=== PATIENT | male | born 1955 | race Caucasian/White ===

== ENCOUNTER 2016-09-27 11:49 | Observation (INO) | payer BC ==
[2016-09-27] MEDS ORDERED: Aspirin Low Dose CHEW TAB* 81 MG PO ONE (12:39)
[2016-09-27] MEDS ORDERED: Nitroglycerin TAB 0.4 MG* 0.4 MG TAB SL ONE (12:50)
[2016-09-27 13:08] LABS: Hematocrit 46 % (42-52); Hemoglobin 15.5 g/dl (14.0-18.0); Mean Corpuscular HGB Conc 34 g/dl (31-36); Mean Corpuscular Hemoglobin 29 pg (27-31); Mean Corpuscular Volume 85 fL (80-94); Mean Platelet Volume 8 um3 (7.4-10.4); Red Blood Count 5.41 10^6/ul (4.0-5.4); Red Cell Distribution Width 12 % (10.5-15); White Blood Count 4.4 10^3/ul (3.5-10.8)
--- NOTE | 2016-09-27 13:15 | RAD ---
INDICATION: Chest pain. Cough and congestion COMPARISON: None TECHNIQUE: An AP portable view obtained at 1305 hours is submitted. FINDINGS: Bones/Soft Tissues: There are no acute bony findings. Cardiomediastinal: The cardiomediastinal silhouette is normal. Lungs: There is an ill-defined roughly 1.8 cm opacity projecting over the right upper lobe. This is nonspecific. Suggest repeating the chest x-ray in 7-10 days if the patient has current clinical symptoms which might be related to a pneumonitis. Alternatively, CT imaging could be performed. Pleura: There are no pleural effusions. Other: None IMPRESSION: INDETERMINATE RIGHT UPPER LOBE OPACITY. SUGGEST FOLLOW-UP
[2016-09-27 13:20] LABS: Calcium 9.2 mg/dL (8.6-10.3); EGFR African American 90.7 (>60); EGFR Non-African American 70.5 (>60); Globulin 2.7 g/dL (2-4); Potassium 4.1 mmol/L (3.5-5.0); Total Bilirubin 0.4 mg/dL (0.2-1.0); Total Protein 6.7 g/dL (6.4-8.9)
[2016-09-27] MEDS ORDERED: Iohexol 350* (CONTRAST) 500 ML MDV IV ONE (13:32)
[2016-09-27] MEDS ORDERED: Nitroglycerin TAB 0.4 MG* 0.4 MG TAB ONE (14:29)
[2016-09-27] MEDS ORDERED: Nitroglycerin 2% OINT* 1 GM PAK ONE (14:33)
--- NOTE | 2016-09-27 14:35 | RAD ---
HISTORY: Chest pain radiating to back COMPARISONS: None TECHNIQUE: Multiple contiguous axial CT scans were obtained of the chest and abdomen after the administration of intravenous contrast. Coronal and sagittal multiplanar reformations are submitted for review.. 3-D volumetric reconstructions are submitted of the aorta FINDINGS: CHEST NECK AND THYROID: The lower neck and thyroid are unremarkable. CHEST WALL: There is no lower cervical, axillary, or supraclavicular lymphadenopathy by size criteria. HEART AND PERICARDIUM: The heart is unremarkable. AORTA AND PULMONARY VASCULATURE: The aorta and pulmonary vasculature are normal. There is no aneurysmal dilatation or dissection flap. There is no pulmonary arterial filling defect. MEDIASTINUM: There is no mediastinal lymphadenopathy by size criteria. PATRICIA: There is no hilar lymphadenopathy by size criteria. AIRWAY AND ESOPHAGUS: The airway is unremarkable, without endobronchial filling defect. The esophagus is grossly normal. LUNG PARENCHYMA: There is a 1.3 cm nodule of the right upper lobe with smaller adjacent nodules. PLEURA: No pleural abnormalities are noted. BONES AND SOFT TISSUES: No bone or soft tissue abnormalities are noted. ABDOMEN/PELVIS: LIVER: The liver is normal in shape, size, contour, and attenuation. BILE DUCTS: There is no intrahepatic or extrahepatic biliary dilatation. GALLBLADDER: The gallbladder is normal, without pericholecystic inflammatory change. PANCREAS: The pancreas is normal, without mass or ductal dilatation. SPLEEN: Normal in size and appearance. UPPER GI TRACT: Evaluation of the gastrointestinal tract is limited by incomplete gastric distention. The upper GI tract is unremarkable. SMALL BOWEL \T\ MESENTERY: The small bowel is normal in contour, course, and caliber. There is no obstruction or dilatation. COLON: The colon is normal in contour, course, caliber. There is no pericolonic inflammatory change. ADRENALS: Normal bilaterally. KIDNEYS: The kidneys are normal in shape, size, contour, and axis. There is no hydronephrosis or nephrolithiasis. AORTA: The aorta is normal. There is no visible dilatation or dissection flap IVC: Unremarkable LYMPH NODES: There is no lymphadenopathy by size criteria. ABDOMINAL WALL: There is no evidence for abdominal wall hernia. BONES: There are mild diffuse degenerative changes. OTHER: None IMPRESSION: 1. NO ANEURYSMAL DILATATION OF THE AORTA. NO DISSECTION FLAP. 2. NO PULMONARY ARTERIAL FILLING DEFECT. 3. 1.3 CM NODULE OF THE RIGHT UPPER LOBE WITH SMALLER ADJACENT NODULES. THE RECOMMENDATIONS FOR FOLLOWUP AND MANAGEMENT OF AN INCIDENTALLY DETECTED PULMONARY NODULE GREATER THAN 8 MM IN SIZE, IN A PATIENT WITHOUT A HISTORY OF MALIGNANCY, INCLUDE FOLLOWUP CT AT 3, 9, AND 24 MONTHS, DYNAMIC CONTRAST-ENHANCED CT, PET-CT, AND/OR BIOPSY. NOTES: SIZE = AVERAGE LENGTH AND WIDTH; NODULES WITH A GROUND GLASS COMPONENT MAY REQUIRE LONGER FOLLOW UP TO EXCLUDE INDOLENT ADENOCARCINOMA.
[2016-09-27] MEDS ORDERED: Nitroglycerin 2% OINT* 1 GM PAK TOPICAL ONE (14:38)
[2016-09-27] MEDS ORDERED: Ondansetron INJ* 2 MG/ML VIAL IV PRN (14:38)
[2016-09-27] MEDS ORDERED: Acetaminophen TAB* 325 MG PO PRN (14:38)
[2016-09-27] MEDS: Nitroglycerin 2% OINT* 1 GM PAK TOPICAL SCH ×2 (19:37→19:39)
[2016-09-27] MEDS ORDERED: Nitroglycerin 2% OINT* 1 GM PAK TOPICAL SCH (22:00)
[2016-09-27] MEDS: Heparin VIAL(*) 5000 UNITS/ML VIAL (FIVE THOUSAND) SUBCUT SCH (22:20)
--- NOTE | 2016-09-28 04:25 | HP ---
HISTORY AND PHYSICAL: DATE OF ADMISSION: 09/27/16 PRIMARY CARE PROVIDER: Jacinto Mcclellan MD ATTENDING PHYSICIAN: Cedric Fernandes MD* (dictated by Skip Mas NP) CHIEF COMPLAINT: Chest pain. HISTORY OF PRESENT ILLNESS: Mr. Cannon is a 61-year-old male patient. He says over the last week he has had intermittent discomfort, starting in his back , mostly stating that he was going to massage therapist, stating that he was going to chiropractor and this was helping with the discomfort; however, the last 24 to 48 hours, he noticed that the discomfort started in his back. It felt different. It was not a sharp pain. It was a pressure, tightness feeling that was coming and going in waves, which was completely new from his previous symptoms that he had last week. He says he also noted today that he felt short of breath. He says that yesterday he went skiing and he actually did fine with skiing. He had no discomfort whatsoever with exertion. He said that the discomfort really started getting worse today. He was concerned and decided to come in because he looked up symptoms of a heart attack and felt that this might be the case. He does have a history of hyperlipidemia only and hypertension, but not on medications. He is managing this with diet control. His father did have a history of angina. He was evaluated in the ER. There was concern for the chest discomfort that it may represent ACS. Hospital service was asked to evaluate for admission. PAST MEDICAL HISTORY: Significant for: 1. Hypertension. 2. Hyperlipidemia. PAST SURGICAL HISTORY: Denied. HOME MEDICATIONS: Denied. ALLERGIES TO MEDICATIONS: Include no known drug allergies. FAMILY HISTORY: Mother recently at the age of 94. Father from emphysema. He did have a history of angina. SOCIAL HISTORY: He does not smoke. He does not drink alcohol. He works at [employer]. Surrogate decision maker is his brother, Glenn. REVIEW OF SYSTEMS: There is no documented fever. He denied having any significant weight change. There was no double vision. There is no ear discharge. He denies having any rhinorrhea. There is no sore throat. No thyroid enlargement. There is chest pain per my HPI. There is no orthopnea. No nocturnal dyspnea. There is no abdominal pain. There is no nausea. No vomiting. No dysuria. No frequency. No loss of consciousness. No pruritus. No skin ulcerations. Review of 14 systems completed, all others negative. PHYSICAL EXAMINATION GENERAL: At this time, Mr. Cannon is a 61-year-old male patient. He appears to be well nourished, well developed. He is sitting in the ER stretcher. He does not appear to be in any acute distress. VITAL SIGNS: Reveals blood pressure 147/85, pulse 67, respirations 16, O2 sat of 100%, and temperature 97. HEENT: Head is atraumatic and normocephalic. Eyes: Sclerae are anicteric and not pale. NECK: Supple. Throat: Oral mucosa appears to be moist. No oropharyngeal erythema. LUNGS: Clear to auscultation bilaterally. No wheezes, rales, or rhonchi. HEART: Sounds S1, S2. Regular rate and rhythm. No murmurs, rubs, or gallops. ABDOMEN: Soft, it was flat, and nontender. Bowel sounds present. EXTREMITIES: Pulses 2+ throughout. Able to move all 4 extremities with 5/5 strength. NEUROLOGIC: The patient is awake, alert, and oriented x3. Tongue midline. Traveling Inventory Associate are equal. No gross focal deficits. SKIN: Intact. DIAGNOSTIC STUDIES/LAB DATA: Today reveal WBC of 4.4, RBC of 5.41, hemoglobin 15.5, hematocrit 46, platelet count of 262. His sodium was 132, potassium was 4.1, chloride of 99, bicarb 28, BUN 16, creatinine of 1.07, glucose 95, lactic 1.4, and calcium 9.2. Total bilirubin 0.4, AST 21, ALT 23, and alk phos 44. Troponin 0.00. Albumin 4. Serology was negative for hepatitis C. He had a chest, abdomen, and pelvis CTA; which showed no aneurysmal dilatation of the aorta, no dissection flap, no pulmonary arterial filling defect, 1.3-cm nodule at the right upper lobe with smaller adjacent nodules. Recommendations for followup and management of an incidentally detected pulmonary nodule greater than 8 mm in size in a patient without history of malignancy; follow up at 3, 9, and 24 months. He had a chest x-ray obtained today, which when I reviewed earlier today, I do not appreciate any acute infiltrates or effusions. Radiology read as indeterminate right upper lobe opacity, suggest followup. He had an EKG obtained today as well, which showed a normal sinus rhythm, rate of 71, no ST elevation or T-wave inversions. No previous for comparison. Old medical records were reviewed. ASSESSMENT AND PLAN: Mr. Cannon is a 61-year-old male patient coming in to the ER today with complaints of chest discomfort, starting in the back, radiating into the chest with associated shortness of breath. He will be admitted under observation status for: 1. Chest discomfort: Again, the story is concerning for acute coronary syndrome. He does have a history of hypertension and hyperlipidemia. He is low risk, but I think with the story, a stress test is appropriate. We will cycle his troponins. His EKG looks stable. Troponin looks stable. I am going to put him on aspirin and nitrates for the time being. I am going to hold on any beta angeli for now. We will monitor the blood pressure. Maybe we could consider starting a small dose of Lopressor. Stress test tomorrow. EKG in the morning. Lipid panel, A1c in the morning and we will go ahead and go for the stress test. 2. Hypertension: We will monitor. May need to consider starting antihypertensive. 3. Hyperlipidemia: Check lipid panel in the morning. We will follow. 4. DVT prophylaxis: He will be placed on heparin subcu. 5. Code status: Full code. 6. Fluids, electrolytes, and nutrition: He can have a heart healthy diet and he is n.p.o. after midnight. TIME SPENT: Time spent on the admission was 60 minutes; greater than half the time was spent [id number] with the patient obtaining my history and physical, the other half time is spent going over the plan of care with the patient and implementing plan of care. I discussed the plan of care with my attending, Dr. Fernandes. He is in agreement. SKIP MAS NP CC: Dr. Mcclellan* [id number]/[facility] #: [id number] SHIRAZ
[2016-09-28 04:42] LABS: Hematocrit 45 % (42-52); Hemoglobin 15.1 g/dl (14.0-18.0); Mean Corpuscular HGB Conc 33 g/dl (31-36); Mean Corpuscular Hemoglobin 28 pg (27-31); Mean Corpuscular Volume 85 fL (80-94); Mean Platelet Volume 7 um3 (7.4-10.4); Red Cell Distribution Width 12 % (10.5-15); White Blood Count 4.6 10^3/ul (3.5-10.8)
[2016-09-28 04:56] LABS: BUN/Creatinine Ratio 16.9 (8-20); Calcium 9.3 mg/dL (8.6-10.3); HDL Cholesterol 45.1 mg/dL; Potassium 4.4 mmol/L (3.5-5.0)
[2016-09-28] MEDS: Heparin VIAL(*) 5000 UNITS/ML VIAL (FIVE THOUSAND) SUBCUT SCH (05:23)
[2016-09-28 08:14] VITALS: BP 111/70
[2016-09-28] MEDS ORDERED: Aspirin Low Dose CHEW TAB* 81 MG PO SCH (09:00)
--- NOTE | 2016-09-28 10:16 | PN ---
Hospitalist Progress Note . HOSPITALIST DISCHARGE NOTE: See dc instructions and summary by me. Patient stable for dc dc instructions reviewed with the patient at the bedside. DC patient home today.
--- NOTE | 2016-09-28 11:32 | RAD ---
HISTORY: Chest pain hypertension, hyperlipidemia COMPARISONS: None TECHNIQUE: A 1 day stress/rest myocardial perfusion study was performed, with exercise stress. The exercise portion was performed using the Jacinto protocol, for a total METs of 12.8. The stress portion was monitored by Dr. Sosa. Gated SPECT imaging was performed, with CT-based attenuation correction DOSE: Stress: Technetium 99m tetrofosmin, 25.77 millicuries, injected at 9:34 AM on September 28, 2016 Rest: Technetium 99m tetrofosmin, 10.29 millicuries, injected at 6:27 AM on September 28, 2016 Pharmacologic agent: None FINDINGS: CARDIAC MONITORING: Peak heart rate of 150 bpm, 94% of predicted. No EKG changes of ischemia with stress EF: 70 % TID: 0.88 MOTION: Normal motion, with normal wall thickening. PERFUSION: There are no fixed or reversible perfusion defects. A small area of photopenia on the attenuation corrected images is felt to be artifactual. OTHER: None IMPRESSION: NO FIXED OR REVERSIBLE PERFUSION DEFECTS ASSESSMENT: LOW RISK. Based on imaging criteria from ACC/AHA 2002. Guideline Update for the Management of Patient's with Chronic Stable Angina, table 23. Noninvasive Risk Stratification.
--- NOTE | 2016-09-29 03:06 | DS ---
DISCHARGE SUMMARY: DATE OF ADMISSION: 09/27/16 DATE OF DISCHARGE: 09/28/16 PRIMARY CARE PROVIDER: Jacinto Mcclellan MD STATUS DURING HOSPITALIZATION: Observation. PRINCIPAL DISCHARGE DIAGNOSES: 1. Chest pain status post nuclear stress test with low risk for coronary ischemia as per ACC/AHA criteria and no residual chest pain. 2. CTA negative for pulmonary embolism but did show incidental pulmonary nodule with followup instructions recommended to the patient and communicated below to Dr. Mcclellan. Please note the patient has not seen Dr. Mclcellan in person, but was a former patient of Dr. Ovi Miranda, who has left [facility] in [place] and the patient is reassigned to Dr. Mcclellan. SECONDARY DIAGNOSES: 1. Hypertension. 2. Hyperlipidemia. OUTPATIENT MEDICATIONS: None currently. FOLLOWUP APPOINTMENT: With Dr. Jacinto Mcclellan will be on 10/04/16 at 8 a.m., but the patient will be seeing nurse practitioner, Ambar Plata, for this appointment. HISTORY OF PRESENT ILLNESS AND HOSPITAL COURSE: Please see H and P by Dr. Dany Fernandes dictated by nurse practitioner Skip Mas, on 09/27/16. In brief, Mr. Cannon is a 61-year-old male patient who has been having intermittent discomfort in his back over the past week. He sought help with a massage therapist and was going to a chiropractor and that was helping somewhat. However, over the 24 to 48 hours prior to admission, the patient was experiencing increasing pain - in waves, which was different than his earlier symptomatology. He felt somewhat short of breath and because the pain was getting worse, he decided to come to the hospital because he was concerned he might be having a heart attack. He does have a history of hyperlipidemia and hypertension, but is not on medications. These are currently controlled by diet. The patient's father has history of angina and again he is concerned about ACS. The patient was placed on observation status under the hospitalist service. He had serial cardiac enzymes which remained negative. He had a CTA to rule out pulmonary embolism and that was mainly concerning for the right upper lobe nodule with followup recommendations at 3, 9 and 24 months. A copy of this report was given to the patient and he was asked to follow up with Dr. Mcclellan or Associates in his followup visit. The patient's stress test was accomplished on the morning of 09/28/16 and was interpreted as low risk. The patient has not experienced any chest pain. He feels better knowing that he is not having coronary related pain (unlikely secondary to the stress test but not completely excluded as explained to the patient). The patient will follow up with Dr. Mcclellan and can come back to the hospital if he has any worrisome symptoms in the interim. He said he will comply with this instruction. No medications were prescribed to the patient at this time. TIME SPENT: Total time taken to discharge Mr. Cannon was 40 minutes, greater than half the time was spent going over the discharge instructions with the patient, results of the stress test, the findings on the CTA of chest and explaining return to hospital instructions to him. CONDITION: Stable. CC: Jacinto Mcclellan MD * [id number]/[facility] #: [id number] SHIRAZ
--- NOTE | 2016-10-14 20:28 | ED ---
Alphonse Melgar Adam, scribed for Anoop Shi MD on 09/27/16 at 1233 . HPI Chest Pain - HPI Summary HPI Summary: 61 y/o male presents to ED and c/o CP as of 1800 last night. He reports having perceived what he originally thought was back pain 7 days ago, and after skiing one day ago, came home feeling CP as well as SOB. The CP currently registers at a 2/10 in severity and worsens slightly with movement. The pt denies any dyspnea , nausea, diaphoresis, fever, or chills. Pt does note along with CP and SOB experiencing subtle tingling around arms and legs, as well as a cough. He does not report any Hx of smoking, drinking, medications, HTN, HLD, or DM, but does state he was diagnosed with PNA over 4 month ago. - History of Current Complaint Chief Complaint: EDChestPainROMI Time Seen by Provider: 09/27/16 12:05 Hx Obtained From: Patient Onset/Duration: Started Days Ago, Atraumatic, Still Present Timing: Constant, Lasting Days Initial Severity: Moderate Current Severity: Mild Pain Intensity: 2 Pain Scale Used: 0-10 Numeric Chest Pain Radiates: Yes Chest Pain Radiates To:: Back Aggravating Factor(s): Exertion, Movement Alleviating Factor(s): Nothing Associated Signs and Symptoms: Positive: Chest Pain, Tingling, Shortness of Breath, Cough. Negative: Fever, Chills, Diaphoresis, Nausea - Allergy/Home Medications Allergies/Adverse Reactions: Allergies Allergy/AdvReac Type Severity Reaction Status Date / Time No Known Allergies Allergy Verified 09/27/16 11:52 PMH/Surg Hx/FS Hx/Imm Hx Endocrine/Hematology History: Denies: Hx Diabetes, Hx Thyroid Disease Cardiovascular History: Denies: Hx Hypertension Respiratory History: Reports: Hx Pneumonia - over 4 months prior Denies: Hx Asthma, Hx Chronic Obstructive Pulmonary Disease (COPD) GI History: Denies: Hx Ulcer Musculoskeletal History: Denies: Hx Scoliosis Neurological History: Denies: Hx Headaches, Other Neuro Impairments/Disorders Infectious Disease History: No Infectious Disease History: Denies: Hx Hepatitis, Hx Human Immunodeficiency Virus (HIV), Traveled Outside the [place] in Last 30 Days - Family History Known Family History: Positive: Cardiac Disease - Mother had triple bypass surgery during her mid 70s, Other - No family Aneurysms - Social History Occupation: Employed Full-time Lives: Alone Alcohol Use: None Hx Substance Use: No Substance Use Type: Reports: None Hx Tobacco Use: No Smoking Status (MU): Never Smoked Tobacco Review of Systems Negative: Fever, Chills, Skin Diaphoresis Negative: Erythema Negative: Sore Throat Positive: Chest Pain Positive: Shortness Of Breath, Cough Negative: Abdominal Pain, Vomiting, Diarrhea Negative: dysuria, hematuria Negative: Myalgia, Edema Negative: Rash Neurological: Other - Negative: Dizziness Positive: Numbness - Tingling in extremities All Other Systems Reviewed And Are Negative: Yes Physical Exam - Summary Physical Exam Summary: Constitutional: Well-developed, Well-nourished, Alert. (-) Distressed Skin: Warm, Dry HENT: Normocephalic; Atraumatic Eyes: Conjunctiva normal Neck: Musculoskeletal ROM normal neck. (-) JVD, (-) Stridor, (-) Tracheal deviation Cardio: Rhythm regular, rate normal, Heart sounds normal; Intact distal pulses; The pedal pulses are 2+ and symmetric. Radial pulses are 2+ and symmetric. (-) Murmur Pulmonary/Chest wall: Effort normal. (-) Respiratory distress, (-) Wheezes, (-) Rales Abd: Soft, (-) Tenderness, (-) Distension, (-) Guarding, (-) Rebound Musculoskeletal: (-) Edema Lymph: (-) Cervical adenopathy Neuro: Alert, Oriented x3 Psych: Mood and affect Normal Triage Information Reviewed: Yes Vital Signs On Initial Exam: Initial Vitals Temp Pulse Resp BP Pulse Ox 97 F 72 16 184/97 99 09/27/16 11:52 09/27/16 11:52 09/27/16 11:52 09/27/16 11:52 09/27/16 11:52 Vital Signs Reviewed: Yes Diagnostics - Vital Signs Vital Signs Temp Pulse Resp BP Pulse Ox 09/27/16 11:52 97 F 72 16 184/97 99 - Laboratory Result Diagrams: 09/27/16 12:45 09/27/16 12:45 Lab Statement: Any lab studies that have been ordered have been reviewed, and results considered in the medical decision making process. - CT CHEST/ABDOMEN CTA CT Interpretation: No Acute Changes CT Interpretation Completed By: Radiologist - EKG 11:53 Cardiac Rate: NL - 71 BPM - Additional Comments Diagnostic Additional Comments: Troponin I - 0.00 Re-Evaluation - Re-Evaluation First Eval Re-Evaluation Time: 14:10 Change: Unchanged - Patient's chest pain remains approximately 3/10 in severity. No improvement with 1 NTG. Chest Pain Course/Dx - Diagnoses Provider Diagnoses: Chest pain, unspecified - Provider Notifications Discussed Care Of Patient With: Dr. Fernandes at 14:35. He is aware of the patient. Discharge - Discharge Plan Condition: Guarded Disposition: ADMITTED TO [facility] documentation as recorded by the Alphonse barnes Adam accurately reflects the service I personally performed and the decisions made by , Anoop Shi MD.
== END 2016-09-28 13:05 | disposition home or self-care (01) ==
LOC: ED 11:49 → MEDTELE 14:33
PROVIDERS: ADMIT Internal Medicine; ATTEND Internal Medicine
DX: R07.9 Chest pain, unspecified (principal); I10 Essential (primary) hypertension; E78.5 Hyperlipidemia, unspecified; R91.1 Solitary pulmonary nodule; R06.02 Shortness of breath; R00.0 Tachycardia, unspecified; I44.4 Left anterior fascicular block
CPT/HCPCS: 36415; 71010; 71275; 74175; 78452; 80048; 80053; 80061; 83036; 83605; 84484; 85025; 85610; 86803; 93005; 93017; 96372; 99283; A9270-GY; A9502; G0378; J1644; Q9967

== ENCOUNTER 2018-02-15 08:35 | Emergency (ER) | payer SELFPAY ==
[2018-02-15 08:46] VITALS: BP 155/76
[2018-02-15] MEDS ORDERED: Fluorescein Sod TOPICAL 0.6* 0.6 MG TEST OPHTHALMIC ONE ×2 (08:56→09:01)
[2018-02-15] MEDS ORDERED: Tetracaine 0.5% OPTH.SOL 15ML* BTL ONE (08:56)
[2018-02-15] MEDS ORDERED: Tetracaine 0.5% OPTH.SOL 4 ML* 1 DROP BTL RIGHT EYE ONE (09:01)
[2018-02-15] MEDS ORDERED: Erythromycin OPTH OINT* APPLIC OINT LEFT EYE ONE (09:15)
--- NOTE | 2018-02-15 09:30 | UC ---
Ambika Melgar Julia, scribed for John Bradford MD on 02/15/18 at 0853 . 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 Pain is 1/10 in severity, upon triage. - History of Current Complaint Chief Complaint: UCEye Stated Complaint: EYE COMPLAINT Hx Obtained From: Patient Onset/Duration: Lasting Hours Timing: Constant Severity Currently: Mild Pain Intensity: 1 Pain Scale Used: 0-10 Numeric Location of Injury: Other - R eye Character: Foreign Body Sensation Associated Signs And Symptoms: Positive: Negative Related History: Foreign Body, Environmental - Allergies/Home Medications Allergies/Adverse Reactions: Allergies Allergy/AdvReac Type Severity Reaction Status Date / Time No Known Allergies Allergy Verified 02/15/18 08:46 PMH/Surg Hx/FS Hx/Imm Hx Previously Healthy: Yes - Surgical History Surgical History: None - Family History Known Family History: Positive: Cardiac Disease - Mother had triple bypass surgery during her mid 70s, Other - No family Aneurysms - Social History Alcohol Use: Occasionally Alcohol Amount: 2-3 beers or wine per day. Substance Use Type: None Smoking Status (MU): Never Smoked Tobacco Review of Systems Constitutional: Negative Eyes: Other - R eye pain All Other Systems Reviewed And Are Negative: Yes Physical Exam - Summary Physical Exam Summary: VITAL SIGNS: Reviewed. GENERAL: Patient is a well-developed and nourished male who is lying comfortable in the stretcher. Patient is not in any acute respiratory distress. HEAD AND FACE: Normocephalic EYES: PERRLA, EOMI x 2. No foreign body appreciated in R eye. Florescence reveals positive uptake around 3 Oclock. EARS: Hearing grossly intact. MOUTH: Oropharynx within normal limits. NECK: Supple, trachea is midline, no adenopathy, no JVD, no carotid bruit. CHEST: Symmetric, no tenderness at palpation LUNGS: Clear to auscultation bilaterally. No wheezing or crackles. CVS: Regular rate and rhythm, S1 and S2 present, no murmurs or gallops appreciated. ABDOMEN: Soft, non-tender. Bowel sounds are normal. No abdominal abnormal pulsations. EXTREMITIES: Full ROM in all major joints, no edema, no cyanosis or clubbing. NEURO: Alert and oriented x 3. No acute neurological deficits. Speech is normal and follows commands. SKIN: Dry and warm Triage Information Reviewed: Yes Vital Signs: Initial Vital Signs Temp 97 F 02/15/18 08:43 Pulse 64 02/15/18 08:43 Resp 16 02/15/18 08:43 BP 155/76 02/15/18 08:43 Pulse Ox 100 02/15/18 08:43 Vital Signs Reviewed: Yes Eye Complaint Course/Dx - Course Course Of Treatment: There is no foreign body appreciated. There was a positive reuptake from in deformity to the patient had a corneal scratch / abrasion. He was given erythromycin ointment, follow-up with ophthalmology. Patient is feeling better, irritation has decreased. He was instructed to return to the urgent care or follow with a primary care physician if symptoms worsen. He understands and agrees. - Differential Dx/Diagnosis Provider Diagnoses: corneal abrasion Discharge - Sign-Out/Discharge Documenting (check all that apply): Discharge/Admit/Transfer - discharge - Discharge Plan Condition: Stable Disposition: HOME Patient Education Materials: Corneal Abrasion (ED), Corneal Abrasion (DC) Referrals: Twan Sheridan MD [Primary Care Provider] - Rogelio Wisdom MD [Medical Doctor] - 2 Days () Additional Instructions: Take medications as instructed Increase your fluid intake Return to the if symptoms worsen - Billing Disposition and Condition Condition: STABLE Disposition: Home The documentation as recorded by the Ambika barnes Julia accurately reflects the service I personally performed and the decisions made by , John Bradofrd MD.
== END 2018-02-15 09:25 | disposition home or self-care (01) ==
LOC: UCEAST 08:35
DX: S05.01XA Injury of conjunctiva and corneal abrasion without foreign body, right eye, initial encounter (principal); X58.XXXA Exposure to other specified factors, initial encounter; Y93.89 Activity, other specified; Y92.9 Unspecified place or not applicable
CPT/HCPCS: 99212; A9270-GY; G0463

== ENCOUNTER 2019-01-12 14:27 | Emergency (ER) | payer BC, OTHER ==
[2019-01-12 14:34] VITALS: BP 143/78
--- NOTE | 2019-01-12 14:42 | UC ---
Ear Complaint HPI - HPI Summary HPI Summary: ears clogged with decreased hearing - History of Current Complaint Chief Complaint: UCEar Stated Complaint: EAR PAIN Time Seen by Provider: 01/12/19 14:34 Hx Obtained From: Patient Onset/Duration: Gradual Onset, Still Present Severity Initially: Mild Severity Currently: Mild Pain Intensity: 1 Pain Scale Used: 0-10 Numeric Aggravating Factors: Nothing Alleviating Factors: Nothing Associated Signs/Symptoms: Positive: Hearing Loss - Allergies/Home Medications Allergies/Adverse Reactions: Allergies Allergy/AdvReac Type Severity Reaction Status Date / Time No Known Allergies Allergy Verified 01/12/19 14:34 Home Medications: Home Medications Lisinopril 20 mg PO 01/12/19 [History] PMH/Surg Hx/FS Hx/Imm Hx Previously Healthy: Yes Cardiovascular History: Hypertension - Surgical History Surgical History: None - Family History Known Family History: Positive: Cardiac Disease - Mother had triple bypass surgery during her mid 70s, Other - No family Aneurysms - Social History Occupation: Retired Lives: With Family Alcohol Use: Daily Alcohol Amount: 2-3 beers or wine per day. Substance Use Type: None Smoking Status (MU): Never Smoked Tobacco Review of Systems All Other Systems Reviewed And Are Negative: Yes Constitutional: Positive: Negative Skin: Positive: Negative Eyes: Positive: Negative ENT: Positive: Ear Ache Respiratory: Positive: Negative Cardiovascular: Positive: Negative Gastrointestinal: Positive: Negative Genitourinary: Positive: Negative Motor: Positive: Negative Neurovascular: Positive: Negative Musculoskeletal: Positive: Negative Neurological: Positive: Negative Psychological: Positive: Negative Is Patient Immunocompromised?: No Physical Exam Triage Information Reviewed: Yes Appearance: Well-Appearing, No Pain Distress, Well-Nourished Vital Signs: Initial Vital Signs Temp 98.5 F 01/12/19 14:31 Pulse 74 01/12/19 14:31 Resp 18 01/12/19 14:31 BP 143/78 01/12/19 14:31 Pulse Ox 98 01/12/19 14:31 Vital Signs Reviewed: Yes Eye Exam: Normal Eyes: Positive: Conjunctiva Clear ENT Exam: Normal ENT: Positive: Normal ENT inspection, Hearing grossly normal, Pharynx normal, Pharyngeal erythema, Other - bilateral cerumen impaction after irragation normal TM and symptom relief. Negative: Nasal congestion Dental Exam: Normal Neck exam: Normal Neck: Positive: Supple, Nontender, No Lymphadenopathy Respiratory Exam: Normal Respiratory: Positive: Chest non-tender, No respiratory distress, No accessory muscle use Cardiovascular Exam: Normal Cardiovascular: Positive: RRR, Pulses Normal, Brisk Capillary Refill Musculoskeletal Exam: Normal Musculoskeletal: Positive: Strength Intact, ROM Intact, No Edema Neurological Exam: Normal Neurological: Positive: Alert, Muscle Tone Normal Psychological: Positive: Normal Response To Family Skin Exam: Normal Ear Complaint Course/Dx - Course Course Of Treatment: patient tolerated ear irragation well-excellent relief of ear pressure - Differential Dx/Diagnosis Provider Diagnosis: Impacted cerumen of both ears Discharge - Sign-Out/Discharge Documenting (check all that apply): Patient Departure All imaging exams completed and their final reports reviewed: No Studies - Discharge Plan Condition: Stable Disposition: HOME Patient Education Materials: Cerumen Impaction (ED), Hypertension (ED) Referrals: Twan Sheridan MD [Primary Care Provider] - 2 Weeks - Billing Disposition and Condition Condition: STABLE Disposition: Home
== END 2019-01-12 15:21 | disposition home or self-care (01) ==
LOC: UCEAST 14:27
DX: H61.23 Impacted cerumen, bilateral (principal); I10 Essential (primary) hypertension
CPT/HCPCS: 99213; G0463

== ENCOUNTER 2019-04-21 00:18 | Emergency (ER) | payer BC ==
--- NOTE | 2019-04-21 01:39 | ED ---
Respiratory - HPI Summary HPI Summary: Patient is a 63 y/o M presenting to [facility] with complaints of SOB. He states that he was sleeping tonight, 04/20/19-04/21/19, when he was suddenly awoken from a deep sleep due to feeling SOB. He reports episode lasted 60 seconds and he gradually regained his breathing. Patient notes that he had similar episodes previously. He had undergone a sleep study around a year ago but was not able to complete it and received no diagnosis. He notes that his previous episodes were significantly shorter. Patient notes that he was "terrified" during the episode and is concerned about recurrence of this episode. No Hx of GERD is noted. Patient has Hx of HTN for which he takes lisinopril. He notes that he recently went on a three-day canoeing trip. On triage, pain is denied. Nothing is noted to aggravate/alleviate Sx. Home medications and allergies are reviewed. - History of Current Complaint Chief Complaint: EDGeneral Stated Complaint: WOKE UP THROAT WAS CLOSED PER PT Time Seen by Provider: 04/21/19 01:33 Hx Obtained From: Patient Onset/Duration: Lasting Minutes - 1 minute, Resolved Timing: Intermittent Episodes Lasting: - 1 minute Current Severity: None Pain Intensity: 0 Sputum Amount: None Aggravating Factor(s): Nothing Alleviating Factor(s): Nothing Associated Signs and Symptoms: SOB - since resolved - Allergy/Home Medications Allergies/Adverse Reactions: Allergies Allergy/AdvReac Type Severity Reaction Status Date / Time No Known Allergies Allergy Verified 01/12/19 14:34 PMH/Surg Hx/FS Hx/Imm Hx Endocrine/Hematology History: Denies: Hx Diabetes, Hx Thyroid Disease Cardiovascular History: Reports: Hx Angina, Hx Hypercholesterolemia, Hx Hypertension Denies: Hx Coronary Artery Disease, Hx Myocardial Infarction, Hx Valvular Heart Disease Respiratory History: Reports: Hx Pneumonia - over 4 months prior Denies: Hx Asthma, Hx Chronic Obstructive Pulmonary Disease (COPD) GI History: Denies: Hx Ulcer Musculoskeletal History: Reports: Hx Back Problems - back pain: "between my shoulder blades" Denies: Hx Scoliosis Neurological History: Denies: Hx Headaches, Other Neuro Impairments/Disorders Infectious Disease History: No Infectious Disease History: Denies: Hx Hepatitis, Hx Human Immunodeficiency Virus (HIV), Traveled Outside the [place] in Last 30 Days - Family History Known Family History: Positive: Cardiac Disease - Mother had triple bypass surgery during her mid 70s, Other - No family Aneurysms - Social History Alcohol Use: Daily Alcohol Amount: 2-3 beers or wine per day. Hx Substance Use: No Substance Use Type: Reports: None Hx Tobacco Use: No Smoking Status (MU): Never Smoked Tobacco Review of Systems Negative: Fever - on vitals, temp is 97.7 F Positive: Shortness Of Breath All Other Systems Reviewed And Are Negative: Yes Physical Exam - Summary Physical Exam Summary: Appearance: Well-appearing, Well-nourished, lying in bed comfortably Skin: Warm, dry, no obvious rash Eyes: sclera anicteric, no conjunctival pallor ENT: mucous membranes moist, pharynx appears normal, no sign of any upper airway obstruction Neck: Supple, nontender Respiratory: Clear to auscultation, no signs of respiratory distress Cardiovascular: Normal S1, S2. No murmurs. Normal distal pulses in tibial and radial bilaterally. Abdomen: Soft, nontender, normal active bowel sounds present Musculoskeletal: Normal, Strength/ROM Intact Neurological: A&Ox3, awake and alert, mentation is normal, speech is fluent and appropriate Psychiatric: affect is normal, does not appear anxious or depressed Triage Information Reviewed: Yes Vital Signs On Initial Exam: Initial Vitals Temp Pulse Resp BP Pulse Ox 97.7 F 56 18 160/85 99 04/21/19 00:28 04/21/19 00:28 04/21/19 00:28 04/21/19 00:28 04/21/19 00:28 Vital Signs Reviewed: Yes Diagnostics - Vital Signs Vital Signs Temp Pulse Resp BP Pulse Ox 04/21/19 00:28 97.7 F 56 18 160/85 99 - Laboratory Lab Statement: Any lab studies that have been ordered have been reviewed, and results considered in the medical decision making process. Disposition - Course Course Of Treatment: Patient is a 63 y/o M presenting to [facility] with complaints of SOB. He states that he was sleeping tonight, 04/20/19-04/21/19, when he was suddenly awoken from a deep sleep due to feeling SOB. He reports episode lasted 60 seconds and he gradually regained his breathing. Patient notes that he had similar episodes previously. He had undergone a sleep study around a year ago but was not able to complete it and received no diagnosis. He notes that his previous episodes were significantly shorter. Patient notes that he was "terrified" during the episode and is concerned about recurrence of this episode. Physical exam is unremarkable. No upper airway obstruction is noted. Sx were discussed with the patient. He was discharged to home and advised to follow up with his PCP and to possibly do another sleep study. - Diagnoses Provider Diagnoses: Sleep disturbance Discharge ED - Sign-Out/Discharge Documenting (check all that apply): Patient Departure - discharge Patient Received Moderate/Deep Sedation with Procedure: No - Discharge Plan Condition: Good Disposition: HOME Patient Education Materials: Sleep Apnea (DC) Referrals: Twan Sheridan MD [Primary Care Provider] - Additional Instructions: Your symptoms could be due to a number of conditions, such as sleep apnea, parasomnia, or GERD. In terms of your concern about your airway being obstructed , all of these are self limited in that the airway issue resolves quickly on its own. I would recommend seeing your regular doctor and perhaps having another sleep study. - Billing Disposition and Condition Condition: GOOD Disposition: Home - Attestation Statements Document Initiated by Allen: Yes Documenting Scribe: AIDAN TRAORE Provider For Whom Allen is Documenting (Include Credential): LOLI LARA MD Scribe Attestation: IAIDAN , scribed for LOLI LARA MD on 04/21/19 at 0636. Scribe Documentation Reviewed: Yes Provider Attestation: The documentation as recorded by the AIDAN barnes accurately reflects the service I personally performed and the decisions made by me, LOLI LARA MD Status of Scribe Document: Viewed
[2019-04-21 01:58] VITALS: BP 149/72
== END 2019-04-21 01:58 | disposition home or self-care (01) ==
LOC: ED 00:18
DX: G47.9 Sleep disorder, unspecified (principal); I20.9 Angina pectoris, unspecified; E78.00 Pure hypercholesterolemia, unspecified; I10 Essential (primary) hypertension; I38 Endocarditis, valve unspecified; Z79.899 Other long term (current) drug therapy
CPT/HCPCS: 99282